=== PATIENT | female | born 1960 | race Caucasian/White ===

== ENCOUNTER 2018-05-24 14:09 | Emergency (ER) | payer MEDICAID, OTHER ==
[~2018-05-24] VITALS: Ht 154.9 cm; Wt 68.9 kg
--- NOTE | 2018-05-24 14:28 | ED General ---
General Chief Complaint: "neuropathy pain" Stated Complaint: GENERAL PAIN Source of Information: Patient Exam Limitations: No Limitations History of Present Illness Date Seen by Provider: May 24, 2018 Time Seen by Provider: 14:28 58 y/o F with history of chronic neuropathic pain, PCP discontinued valium and percocet about 4 months ago, comes in because her pain is worsening and she just can't take it. No new injuries. Is on gabapentin, also a diabetic. Reports compliance with those meds. Denies illicit drug use. Allergies and Home Medications Patient Home Medication List Home Medication List Reviewed: Yes Review of Systems Review of Systems Constitutional: No chills, No fever Respiratory: No cough, No short of breath Cardiovascular: No chest pain, No edema Gastrointestinal: No abdominal pain, No nausea, No vomiting Skin: No lesions, No rash Psychiatric/Neurological: Numbness, Tingling, Other (diffuse pain) Past Cupjfem-Ufkcul-Nkehtr Hx Past Med/Social Hx: Reviewed Nursing Past Med/Soc Hx Patient Social History Recent Foreign Travel: No Physical Exam Vital Signs Capillary Refill : Height, Weight, BMI Height: '" Weight: lbs. oz. kg; BMI Method: General Appearance: WD/WN, Anxious Eyes: Bilateral Eye Normal Inspection, Bilateral Eye PERRL, Bilateral Eye EOMI HEENT: PERRL/EOMI, TMs Normal, Pharynx Normal Neck: Full Range of Motion, Normal Inspection, Non Tender, Supple Respiratory: Chest Non Tender, Lungs Clear, Normal Breath Sounds, No Accessory Muscle Use, No Respiratory Distress Cardiovascular: Regular Rate, Rhythm, No Edema, No Gallop, No JVD, No Murmur, Normal Peripheral Pulses Back: Normal Inspection, No CVA Tenderness, No Vertebral Tenderness Extremity: Normal Capillary Refill, Normal Range of Motion, No Calf Tenderness Neurologic/Psychiatric: Alert, Oriented x3, No Motor/Sensory Deficits Skin: Normal Color, Warm/Dry Progress/Results/Core Measures Suspected Sepsis SIRS Temperature: Pulse: Respiratory Rate: Blood Pressure / Mean: Results/Orders Vital Signs/I&O Capillary Refill : Progress Note : Progress Note reports she has "overdosed on gabapentin" in the past when it was 300 mg q8. No new injury. Educated that this is the ED, not a place to come and get pain medications, she would need to follow up with PCP. I do not prescribe opiates or benzos for neuropathic pain, because they are less effective in treating that kind of pain. Offered Rx for Clonidine. Instructed to follow up with PCP. Departure Impression Primary Impression: Neuropathy Additional Impression: Chronic pain Disposition: 01 HOME, SELF-CARE Condition: Stable Departure-Patient Inst. Decision time for Depature: 14:39 Referrals: ARUNA PALM MD (PCP/Family) Primary Care Physician Patient Instructions: CHRONIC PAIN, Neuropathic Pain Add. Discharge Instructions: All discharge instructions reviewed with patient and/or family. Voiced understanding. Scripts Clonidine HCl (Clonidine HCl) 0.1 Mg Tablet 0.1 MG PO BID for 14 Days, #14 TAB 0 Refills Prov: ENOCH VIGIL MD 05/24/18 ENOCH VIGIL MD May 24, 2018 14:28
[2018-05-24] MEDS ORDERED: CLON0.1T PO (14:42)
[2018-05-24 15:05] VITALS: BP 167/82
== END 2018-05-24 15:05 | disposition home or self-care (01) ==
LOC: ER FS 14:15
DX: G62.9 Polyneuropathy, unspecified (principal); G89.29 Other chronic pain; E11.9 Type 2 diabetes mellitus without complications
CPT/HCPCS: 99281

== ENCOUNTER 2018-07-24 22:46 | Emergency (ER) | payer MEDICAID ==
[~2018-07-24] VITALS: Ht 154.9 cm; Wt 67.1 kg
[~2018-07-24 22:46] MED LIST: CLON0.1T PO
--- OUTSIDE RECORDS SUMMARY | 2018-07-24 22:53 | XMS REPORT ---
Author Author ARUNA PALM Organization [facility] Address [address] [place] [address] Care Team Providers Care Bioinformatics Analyst Name Role Phone ARUNA PALM Unavailable PROBLEMS Type Condition ICD9-CM Code [id number] Code Onset Dates Condition Status SNOMED Code Problem Hypertriglyceridemia 272.1 May, 0 432525215 Problem Benign hypertension 401.1 Oct, 0 56888997 Problem Onychomycosis 110.1 Feb, 0 393230782 Problem Uncontrolled diabetes mellitus 250.02 08 Apr, 2013 0 969984658 Problem Tobacco abuse disorder 305.1 Nov, 0 07321335 Problem Cervical neck pain with evidence of disc disease M50.90 May, 0 525051601 Problem Ingrowing right great toenail 703.0 July, 0 767777250 Problem Uncontrolled diabetes mellitus E11.65 Apr, 0 128995544 Problem Ingrowing right great toenail L60.0 July, 0 805153265 Problem Diverticulosis 562.10 Jan, 0 323075288 Problem Diabetic foot ulcer 250.80 Feb, 0 057829250 Problem Ingrowing left great toenail 703.0 July, 0 279125506 Problem Oral candidiasis 112.0 Sep, 0 39718509 Problem Carpal tunnel syndrome 354.0 Feb, 0 46359578 Problem Pain in joint, shoulder region 719.41 Feb, 0 413327636 Problem 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 Nov, 0 71637702 Problem Chronic posterior anal fissure 565.0 Nov, 0 19166017 Problem Insufficient supply of food T73.0XXA Feb, 0 Problem Insufficient supply of food 994.2 Feb, 0 391016840 Problem Insomnia 780.52 Dec, 0 579841597 Problem Anxiety 300.00 Jan, 0 47756206 Problem Depression 311 08 Sep, 2009 0 42255918 Problem Anemia 285.9 Jan, 0 297092838 Problem Mammographic microcalcification 793.81 Mar, 0 [id number] Problem Hemoglobin A1c 8.0 or greater 790.29 July, 0 202229076 Problem Hypoglycemia, exogenous hyperinsulinemia 251.0 July, 0 259244591 Problem Hemoglobin A1c 8.0 or greater R73.09 July, 0 300971817 Problem Diabetic foot ulcer E11.621 Feb, 0 145229141 Problem Hypoglycemia, exogenous hyperinsulinemia E15 July, 0 361167755 Problem Cyst of breast 610.0 Jun, 0 869658662 Problem Mammographic microcalcification R92.0 Mar, 0 10141340720152 Problem Closed fracture of coccyx S32.2XXA May, 0 358480784 Problem Closed fracture of coccyx 805.6 May, 0 580352557 Problem Elevated cholesterol with high triglycerides 272.2 Dec, 0 544390372 Problem Family history of seizure disorder V17.2 July, 0 695647195 Problem Cervical neck pain with evidence of disc disease 722.91 May, 0 000134026 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 Dec, 0 980672196 Problem Family history of seizure disorder Z82.0 July, 0 732684244 Problem Gastritis and duodenitis 535.50 Dec, 0 736662723 Problem Gastritis and duodenitis K29.90 Dec, 0 453607657 Problem Cyst of breast N60.09 Jun, 0 240221272 Problem Elevated cholesterol with high triglycerides E78.2 Dec, 0 949186099 Problem Hypertriglyceridemia E78.1 May, 0 729535281 Problem Oral candidiasis B37.0 Sep, 0 43742633 Problem Carpal tunnel syndrome G56.00 Feb, 0 44883979 Problem Pain in joint, shoulder region M25.519 Feb, 0 501697908 Problem Ingrowing left great toenail L60.0 July, 0 590820873 Problem Benign hypertension I10 Oct, 0 65036625 Problem Diverticulosis K57.90 Jan, 0 794545142 Problem Polyneuropathy associated with underlying disease G63 Active 502007378 Problem Diabetic polyneuropathy associated with type 2 diabetes mellitus E11.42 Active 94071304 Problem IDDM (insulin dependent diabetes mellitus) E11.9 Sep, 0 480655434 Problem Anxiety F41.9 Active 32755322 Problem IDDM (insulin dependent diabetes mellitus) 250.00 Sep, 0 508147102 Problem Onychomycosis B35.1 Feb, 0 466159582 Problem Inflammatory and toxic neuropathy 357.9 Dec, 0 954974826 Problem Tobacco abuse disorder Z72.0 Nov, 0 01522776 Problem Essential hypertension I10 Active 87058730 Problem Insomnia G47.00 Dec, 0 248222348 Problem USP current use of insulin Z79.4 Active 363455540 Problem Anemia D64.9 Jan, 0 844227407 Problem Type 2 diabetes mellitus with hyperglycemia E11.65 Active 04522643 Problem Sinusitis J32.9 Active 24552169 Problem Depression F32.9 Sep, 0 58275544 ALLERGIES No Information ENCOUNTERS Encounter Location Date Diagnosis [place] [address] [place] [phone] May, [place] [address] [place] [phone] May, Anxiety F41.9 ; Diabetic polyneuropathy associated with type 2 diabetes mellitus E11.42 and High risk medication use Z79.899 [facility] [address] [facility] [place] [address] Apr, Sinusitis J32.9 [place] [address] [place] [address] Apr, [place] [address] [place] [address] Mar, [place] [address] [place] [address] Mar, Type 2 diabetes mellitus with hyperglycemia E11.65 ; local [employer] current use of insulin Z79.4 ; Essential hypertension I10 ; Polyneuropathy associated with underlying disease G63 and Acute URI J06.9 [place] [address] [place] [address] Mar, [place] [address] [place] [phone] Mar, [facility] [address] [place] [address] Mar, [facility] [address] [place] [address] Feb, [facility] [address] [place] [address] Feb, [facility] [id number] [place] [phone] Feb, [facility] [address] [place] [address] Feb, [facility] [address] [place] [address] Feb, [facility] [address] [place] [address] [address] Feb, [facility] [address] [place] [address] Jan, [facility] [address] [place] [address] Jan, IMMUNIZATIONS No Known Immunizations SOCIAL HISTORY Never Assessed REASON FOR VISIT JLA REVIEW PLAN OF CARE VITAL SIGNS MEDICATIONS Unknown Medications RESULTS No Results PROCEDURES No Known procedures INSTRUCTIONS MEDICATIONS ADMINISTERED No Known Medications MEDICAL (GENERAL) HISTORY Type Description Date Medical History type II diabetes Medical History hypertension Medical History anxiety Surgical History tubal ligation Surgical History rectum sugery
--- OUTSIDE RECORDS SUMMARY | 2018-07-24 22:53 | XMS REPORT | Continuity of Care Document ---
Author Organization Unknown Address Unknown Allergies There is no data. Medications There is no data. Problems There is no data. Procedures There is no data. Results There is no data. Encounters ACCT No. Visit Date/Time Discharge Status Pt. Type Provider Facility Loc./Unit Complaint [id number] 06/28/2018 14:20:00 06/28/2018 23:59:59 CLS Outpatient ANUPAM MYERS APRN [facility]
[2018-07-25] MEDS ORDERED: hydrOXYzine (VISTARIL) 25 MG capsule/tablet PO ONE (00:30)
[2018-07-25] MEDS ORDERED: KETOROLAC 30 MG/ML VIAL IM ONE (00:30)
--- NOTE | 2018-07-25 00:35 | ED Psychosocial ---
General Chief Complaint: General Problems/Pain Stated Complaint: BODY ACHES Nursing Triage Note: Patient reports her PCP, Dr. Ann, has stopped prescribing her narcotic pain medication. Patient states she "aches all over" and found a hydrocodone at her mother's house today, so she took it. She now presents to the ED wanting something to help with the pain. History of Present Illness Date Seen by Provider: July 25, 2018 Time Seen by Provider: 00:20 Allergies and Home Medications Allergies Uncoded Allergies: CONTRAST DYE (Allergy, Unknown, 05/24/18) PENICILLIN (Allergy, Unknown, 05/24/18) Home Medications Clonidine HCl 0.1 Mg Tablet, 0.1 MG PO BID Prescribed by: ENOCH VIGIL on 05/24/18 1442 Past Vgdsuvf-Gyquee-Llxqyq Hx Patient Social History Alcohol Use: Denies Use Recreational Drug Use: No Smoking Status: Current Everyday Smoker Type Used: Cigarettes 2nd Hand Smoke Exposure: No Recent Foreign Travel: No Contact w/Someone Who Travel: No Recent Infectious Disease Expo: No Recent Hopitalizations: No Physical Abuse: No Sexual Abuse: No Mistreated: No Fear: No Seasonal Allergies Seasonal Allergies: No Past Medical History Surgeries: Yes Tubal Ligation Respiratory: Yes COPD Cardiac: Yes Hypertension Neurological: Yes Neuropathy Genitourinary: No Gastrointestinal: No Musculoskeletal: No Endocrine: Yes Diabetes, Insulin dep HEENT: No Cancer: No Psychosocial: Yes Anxiety Integumentary: No Blood Disorders: No Physical Exam Vital Signs - First Documented 07/24/18 23:13 Temp 97.2 Pulse 74 Resp 20 B/P (MAP) 141/69 (93) Pulse Ox 98 O2 Delivery Room Air Capillary Refill : Less Than 3 Seconds Height, Weight, BMI Height: 5'1.00" Weight: 148lbs. oz. 67.040563ae; BMI Method:Stated Progress/Results/Core Measures Results/Orders My Orders Orders - VIOLA LARA DO Ketorolac Injection (Toradol Injection) (07/25/18 00:30) Hydroxyzine Cap/Tab (Vistaril) (07/25/18 00:30) Vital Signs/I&O 07/24/18 23:13 Temp 97.2 Pulse 74 Resp 20 B/P (MAP) 141/69 (93) Pulse Ox 98 O2 Delivery Room Air Blood Pressure Mean: 93 Departure Impression Primary Impression: Anxiety and depression Additional Impression: Chronic pain Disposition: HOME, SELF-CARE Condition: Stable Departure-Patient Inst. Decision time for Depature: 00:31 Referrals: [facility] Patient Instructions: Chronic Pain (DC), Anxiety, Adult (DC) Add. Discharge Instructions: All discharge instructions reviewed with patient and/or family. Voiced understanding. RECOMMEND FOLLOWING UP WITH [facility]. THEY HAVE LOCATIONS HERE IN [facility], AND [place]. Scripts Diclofenac Potassium (Diclofenac Potassium) 50 Mg Tablet 50 MG PO Q8H PRN for AINP, #30 TAB 0 Refills Prov: VIOLA LARA DO 07/25/18 Hydroxyzine Pamoate (Hydroxyzine Pamoate) 50 Mg Capsule 50 MG PO Q6H PRN for ANXIETY, #30 CAP 0 Refills Prov: VIOLA LARA DO 07/25/18 VIOLA LARA DO July 25, 2018 00:35
[2018-07-25] MEDS ORDERED: DICL50TA4 PO (00:36)
[2018-07-25] MEDS ORDERED: HYDR50CA3 PO (00:36)
[2018-07-25 00:53] VITALS: BP 177/85
== END 2018-07-25 00:53 | disposition home or self-care (01) ==
LOC: EDUNIT# 22:46 → ER FS 22:50
DX: F41.9 Anxiety disorder, unspecified (principal); F32.9 Major depressive disorder, single episode, unspecified; G89.29 Other chronic pain; J44.9 Chronic obstructive pulmonary disease, unspecified; I10 Essential (primary) hypertension; G62.9 Polyneuropathy, unspecified; E11.9 Type 2 diabetes mellitus without complications; F17.210 Nicotine dependence, cigarettes, uncomplicated; Z98.51 Tubal ligation status; Z88.0 Allergy status to penicillin; Z91.041 Radiographic dye allergy status
CPT/HCPCS: 99284

== ENCOUNTER 2019-04-17 15:44 | Emergency (ER) | payer MEDICAID ==
[~2019-04-17] VITALS: Ht 155 cm; Wt 68.1 kg
[~2019-04-17 15:44] MED LIST changes: +DICL50TA4 PO; +HYDR50CA3 PO
[2019-04-17] MEDS ORDERED: IBUP-1780 PO (16:06)
--- NOTE | 2019-04-17 16:06 | ED General ---
General Chief Complaint: General Problems/Pain Stated Complaint: RIGHT SIDE RIB PAIN Nursing Triage Note: Was getting laundry out of the washing machine and hit her R side on the machine about two hours prior to arrival. Is having pain rated at 10/10. States she has chronic pain but it is much worse. Nursing Sepsis Screen: No Definite Risk Source of Information: Patient Exam Limitations: No Limitations History of Present Illness Date Seen by Provider: Apr 17, 2019 Time Seen by Provider: 16:00 Initial Comments Presents w pain under her R breast, after leaning over and putting laundry into the washer. Did not fall, but now having pain....no bruising. No difficulty b reathing. Allergies and Home Medications Allergies Coded Allergies: Penicillins (Verified Allergy, Unknown, 04/17/19) Uncoded Allergies: CONTRAST DYE (Allergy, Unknown, 05/24/18) PENICILLIN (Allergy, Unknown, 05/24/18) Home Medications Clonidine HCl 0.1 Mg Tablet, 0.1 MG PO BID Prescribed by: ENOCH VIGIL on 05/24/18 1442 Diclofenac Potassium 50 Mg Tablet, 50 MG PO Q8H PRN for AINP Prescribed by: VIOLA LARA on 07/25/18 0036 Hydroxyzine Pamoate 50 Mg Capsule, 50 MG PO Q6H PRN for ANXIETY Prescribed by: VIOLA LARA on 07/25/18 0036 Ibuprofen 800 Mg Tablet, 800 MG PO Q8H PRN for PAIN-MILD Prescribed by: CHET ELIZABETH on 04/17/19 1606 Patient Home Medication List Home Medication List Reviewed: Yes Review of Systems Review of Systems Constitutional: no symptoms reported, see HPI; No fever, No malaise, No weakness Respiratory: see HPI; No cough, No dyspnea on exertion, No short of breath, No stridor, No wheezing Cardiovascular: chest pain (under R breast); No palpitations Gastrointestinal: No abdominal pain, No nausea, No vomiting Musculoskeletal: No back pain, No joint pain Skin: No change in color, No rash Past Cvmhvhz-Aletqq-Hojexu Hx Past Med/Social Hx: Reviewed Nursing Past Med/Soc Hx Patient Social History Alcohol Use: Denies Use Recreational Drug Use: No Type Used: Cigarettes 2nd Hand Smoke Exposure: No Recent Foreign Travel: No Contact w/Someone Who Travel: No Recent Infectious Disease Expo: No Recent Hopitalizations: No Physical Abuse: No Sexual Abuse: No Mistreated: No Fear: No Seasonal Allergies Seasonal Allergies: No Past Medical History Surgeries: Yes Tubal Ligation Respiratory: Yes COPD Cardiac: Yes Hypertension Neurological: Yes Neuropathy Genitourinary: No Gastrointestinal: No Musculoskeletal: No Endocrine: Yes Diabetes, Insulin dep HEENT: No Cancer: No Psychosocial: Yes Anxiety Integumentary: No Blood Disorders: No Physical Exam Vital Signs Vital Signs - First Documented 04/17/19 16:00 Temp 36.4 Pulse 78 Resp 16 B/P (MAP) 173/99 (123) Pulse Ox 98 Capillary Refill : Less Than 3 Seconds Height, Weight, BMI Height: 5'1.00" Weight: 148lbs. oz. 67.570872bz; 28.00 BMI Method:Stated General Appearance: No Apparent Distress, WD/WN Respiratory: Lungs Clear, Normal Breath Sounds Cardiovascular: Regular Rate, Rhythm, No Edema, Normal Peripheral Pulses, Other (Palpation of right lateral chest wall (lateral to area of pain, did not palpate or examine breast) and had no pain w compression of ribs.) Gastrointestinal: Non Tender, Soft Back: Normal Inspection, No CVA Tenderness, No Vertebral Tenderness; No Dec reased Range of Motion, No Muscle Spasm, No Vertebral Tenderness Extremity: Normal Range of Motion (b/l UE's), Non Tender Progress/Results/Core Measures Suspected Sepsis Recent Fever Within 48 Hours: No Infection Criteria Present: None New/Unexplained Altered Menta: No Sepsis Screen: No Definite Risk SIRS Temperature: Pulse: 78 Respiratory Rate: 16 Blood Pressure 173 /99 Mean: 123 Results/Orders Vital Signs/I&O 04/17/19 16:00 Temp 36.4 Pulse 78 Resp 16 B/P (MAP) 173/99 (123) Pulse Ox 98 Capillary Refill : Less Than 3 Seconds Blood Pressure Mean: 123 Departure Impression Primary Impression: Contusion of right chest wall Qualified Codes: S20.211A - Contusion of right front wall of thorax, initial encounter Disposition: HOME, SELF-CARE Condition: Stable Departure-Patient Inst. Decision time for Depature: 16:05 Referrals: ARUNA PALM MD (PCP/Family) Primary Care Physician Patient Instructions: CHEST CONTUSION Scripts Ibuprofen (Ibuprofen) 800 Mg Tablet 800 MG PO Q8H PRN for PAIN-MILD, #30 TAB Prov: ROCHET PENNY DO 04/17/19 CHET ELIZABETH DO Apr 17, 2019 16:06
[2019-04-17 16:12] VITALS: BP 136/81
== END 2019-04-17 16:13 | disposition home or self-care (01) ==
LOC: EDUNIT# 15:44 → ER FS 15:46
DX: S20.211A Contusion of right front wall of thorax, initial encounter (principal); I10 Essential (primary) hypertension; F41.9 Anxiety disorder, unspecified; Z88.0 Allergy status to penicillin; Z91.041 Radiographic dye allergy status; W22.8XXA Striking against or struck by other objects, initial encounter
CPT/HCPCS: 99281

== ENCOUNTER → 2019-04-24 | Outpatient (CLI) | payer MEDICAID ==
[~2019-04-24] MED LIST changes: +IBUP-1780 PO
--- NOTE | 2019-04-24 15:05 | Diagnostic Imaging Report ---
INDICATION: Rib pain after fall. Four views were obtained. FINDINGS: Right lung is clear. There is no pleural effusion or pneumothorax. There are no displaced rib fractures. IMPRESSION: No displaced rib fractures. Dictated by: Dictated on workstation # [id number]
== END ==
LOC: RAD FS 13:50
PROVIDERS: ATTEND Nurse Practitioner Family
DX: R07.81 Pleurodynia (principal)
CPT/HCPCS: 71100

== ENCOUNTER 2019-08-07 11:48 | Emergency (ER) | payer MEDICAID ==
[~2019-08-07] VITALS: Ht 154 cm; Wt 66.5 kg
--- OUTSIDE RECORDS SUMMARY | 2019-08-07 11:54 | XMS REPORT | Continuity of Care Document ---
Author Organization Unknown Address Unknown Phone Unavailable Allergies Active Description Code Type Severity Reaction Onset Reported/Identified Relationship to Patient Clinical Status Yes CONTRAST DYE CONTRAST DYE Unknown N/A 05/24/2018 Yes PENICILLIN PENICILLIN Unknown N/A 05/24/2018 Yes Penicillins [id number] Drug Aller gy Unknown N/A 04/17/2019 Medications There is no data. Problems Date Dx Coded Attending Type Code Diagnosis Diagnosed By 05/24/2018 ENOCH VIGIL MD, Ot E11 .9 TYPE 2 DIABETES MELLITUS WITHOUT COMPLIC 05/24/2018 ENOCH VIGIL MD, Ot G62 .9 POLYNEUROPATHY, UNSPECIFIED 05/24/2018 ENOCH VIGIL MD, Ot G89.29 OTHER CHRONIC PAIN 05/26/2018 ENOCH VIGIL MD Ot E11 .9 TYPE 2 DIABETES MELLITUS WITHOUT COMPLIC 05/26/2018 ENOCH VIGIL MD, Ot G62 .9 POLYNEUROPATHY, UNSPECIFIED 05/26/2018 ENOCH VIGIL MD, Ot G89.29 OTHER CHRONIC PAIN 07/25/2018 VIOLA LARA DO, Ot E11.9 TYPE 2 DIABETES MELLITUS WITHOUT COMPLIC 07/25/2018 VIOLA LARA DO, Ot F17.210 NICOTINE DEPENDENCE, CIGARETTES, UNCOMPL 07/25/2018 VIOLA LARA DO, Ot F32.9 MAJOR DEPRESSIVE DISORDER, SINGLE EPISOD 07/25/2018 VIOLA LARA DO, Ot F41.9 ANXIETY DISORDER, UNSPECIFIED 07/25/2018 VIOLA LARA DO, Ot G62.9 POLYNEUROPATHY, UNSPECIFIED 07/25/2018 VIOLA LARA DO, Ot G89.29 OTHER CHRONIC PAIN 07/25/2018 VIOLA LARA DO, Ot I1 0 ESSENTIAL (PRIMARY) HYPERTENSION 07/25/2018 VIOLA LARA DO, Ot J44.9 CHRONIC OBSTRUCTIVE PULMONARY DISEASE, U 07/25/2018 VIOAL LARA DO, Ot R5 2 PAIN, UNSPECIFIED 07/25/2018 VIOLA LARA DO, Ot Z88.0 ALLERGY STATUS TO PENICILLIN 07/25/2018 VIOLA LARA DO, Ot Z91.041 RADIOGRAPHIC DYE ALLERGY STATUS 07/25/2018 JANE DO, VIOLA [place] Ot Z98.51 TUBAL LIGATION STATUS 04/17/2019 ROVENSTINE DO, CHET Yip Ot F41.9 ANXIETY DISORDER, UNSPECIFIED 04/17/2019 ROVENSTINE DO, CHET Yip Ot I10 ESSENTIAL (PRIMARY) HYPERTENSION 04/17/2019 ROVENSTINE DO, CHET Yip Ot R07.81 PLEURODYNIA 04/17/2019 ROVENSTINE DO, CHET Yip Ot S20.211A CONTUSION OF RIGHT FRONT WALL OF THORAX, 04/17/2019 ROVENSTINE DO, CHET Yip Ot W22.8XXA STRIKING AGAINST OR STRUCK BY OTHER OBJE 04/17/2019 ROVENSTINE DO, CHET Yip Ot Z88.0 ALLERGY STATUS TO PENICILLIN 04/17/2019 ROVENSTINE DO, CHET Yip Ot Z91.041 RADIOGRAPHIC DYE ALLERGY STATUS 04/20/2019 ROVENSTINE DO, CHET Yip Ot F41.9 ANXIETY DISORDER, UNSPECIFIED 04/20/2019 ROVENSTINE DO, CHET Phi Ot I10 ESSENTIAL (PRIMARY) HYPERTENSION 04/20/2019 ROVENSTINE DO, CHET Yip Ot R07.81 PLEURODYNIA 04/20/2019 ROVENSTINE DO, CHET Yip Ot S20.211A CONTUSION OF RIGHT FRONT WALL OF THORAX, 04/20/2019 ROVENSTINE DO, CHET Yip Ot W22.8XXA STRIKING AGAINST OR STRUCK BY OTHER OBJE 04/20/2019 ROVENSTINE DO, CHET Yip Ot Z88.0 ALLERGY STATUS TO PENICILLIN 04/20/2019 ROVENSTINE DO, CHET Yip Ot Z91.041 RADIOGRAPHIC DYE ALLERGY STATUS 04/25/2019 O'DAVION HARTMAN APRN Ot R07.81 PLEURODYNIA 04/25/2019 O'DAVION HARTMAN TRANSPLANTER Ot R07.81 PLEURODYNIA Procedures There is no data. Results Test Result Range PDM - 09 PANEL (PROFILE 1) - 05/18/18 09 :18 Creatinine 13.9 mg/dL > or = 20.0 pH 6.71 4.5 - 9.0 Oxidant NEGATIVE mcg/mL <200 Amphetamines NEGATIVE ng/mL <500 medMATCH Amphetamines CONSISTENT NRG Benzodiazepines POSITIVE ng/mL <100 Marijuana Metabolite NEGATIVE ng/mL <20 medMATCH Marijuana Metab CONSISTENT NRG Cocaine Metabolite NEGATIVE ng/mL <150 medMATCH Cocaine Metab CONSISTENT NRG Opiates NEGATIVE ng/mL <100 medMATCH Opiates CONSISTENT NRG Oxycodone NEGATIVE ng/mL <100 medMATCH Oxycodone CONSISTENT NRG COMMENT NRG Alphahydroxyalprazolam NEGATIVE ng/mL <25 medMATCH aOH alprazolam CONSISTENT NRG Alphahydroxymidazolam NEGATIVE ng/mL < 50 medMATCH aOH midazolam CONSISTENT NRG Alphahydroxytriazolam NEGATIVE ng/mL < 50 medMATCH aOH triazolam CONSISTENT NRG Aminoclonazepam NEGATIVE ng/mL <25 medMATCH Aminoclonazepam CONSISTENT NRG Hydroxyethylflurazepam NEGATIVE ng/mL <50 medMATCH OH,Et flurazepam CONSISTENT NR G Lorazepam NEGATIVE ng/mL <50 medMATCH Lorazepam CONSISTENT NRG Nordiazepam NEGATIVE ng/mL <50 medMATCH Nordiazepam CONSISTENT NRG Oxazepam 59 ng/mL <50 medMATCH Oxazepam INCONSISTENT NRG Temazepam NEGATIVE ng/mL <50 medMATCH Temazepam CONSISTENT NRG Specific [place] 1.004 > or = 1.003 Barbiturates NEGATIVE ng/mL <300 medMATCH Barbiturates CONSISTENT NRG Methadone Metabolite NEGATIVE ng/mL <100 medMATCH Methadone Metab CONSISTENT NRG Phencyclidine NEGATIVE ng/mL <25 medMATCH Phencyclidine CONSISTENT NRG CBC w/MANUAL DIFF - 12/09/18 14:29 WHITE BLOOD CELL COUNT 8.1 Thousand/uL 3 .8-10.8 RED BLOOD CELL COUNT 5.57 Million/uL 3.8 0-5.10 HEMOGLOBIN 16.5 g/dL 11.7-15.5 HEMATOCRIT 47.3 % 35.0-45.0 MCV 84.9 fL 80.0-100.0 MCH 29.6 pg 27.0-33.0 MCHC 34.9 g/dL 32.0-36.0 RDW 13.0 % 11.0-15.0 PLATELET COUNT 193 Thousand/uL 140-400 MPV 11.7 fL 7.5-12.5 COMMENT(S) NRG CULTURE, URINE - 12/09/18 14:29 CULTURE, URINE, ROUTINE NRG A1C - 12/09/18 14:29 HEMOGLOBIN A1c 7.5 % of total Hgb <5.7 DIFFERENTIAL, MANUAL - 12/09/18 14:29 ABSOLUTE NEUTROPHILS 4212 cells/uL 1500- 7800 ABSOLUTE MONOCYTES 162 cells/uL 200-950 ABSOLUTE EOSINOPHILS 154 cells/uL 15-500 ABSOLUTE BASOPHILS 0 cells/uL 0-200 NEUTROPHILS 52.0 % NRG LYMPHOCYTES 44.1 % NRG MONOCYTES 2.0 % NRG EOSINOPHILS 1.9 % NRG BASOPHILS 0 % NRG ABSOLUTE LYMPHOCYTES 3572 cells/uL 850-3 900 PLATELET ESTIMATION ADEQUATE ADEQUATE TSH w/ FREE T4 - 04/26/19 08:33 TSH 2.48 mIU/L 0.40-4.50 T4, FREE 1.3 ng/dL 0.8-1.8 LIPID PANEL - 04/26/19 08:33 CHOLESTEROL, TOTAL 193 mg/dL <200 HDL CHOLESTEROL 43 mg/dL > OR = 50 TRIGLYCERIDES 211 mg/dL <150 LDL-CHOLESTEROL 117 mg/dL (calc) NRG CHOL/HDLC RATIO 4.5 (calc) <5.0 NON HDL CHOLESTEROL 150 mg/dL (calc) <13 0 CMP - 04/26/19 08:33 GLUCOSE 166 mg/dL 65-99 UREA NITROGEN (BUN) 14 mg/dL 7-25 CREATININE 0.69 mg/dL 0.50-0.99 eGFR NON-AFR. MOZAMBICAN 95 mL/min/1.73m2 > OR = 60 eGFR 110 mL/min/1.73m2 > OR = 60 BUN/CREATININE RATIO NOT APPLICABLE (calc) 6-22 SODIUM 140 mmol/L 135-146 POTASSIUM 4.4 mmol/L 3.5-5.3 CHLORIDE 100 mmol/L 98-110 CARBON DIOXIDE 29 mmol/L 20-32 CALCIUM 9.7 mg/dL 8.6-10.4 PROTEIN, TOTAL 7.6 g/dL 6.1-8.1 ALBUMIN 4.6 g/dL 3.6-5.1 GLOBULIN 3.0 g/dL (calc) 1.9-3.7 ALBUMIN/GLOBULIN RATIO 1.5 (calc) 1.0-2. 5 BILIRUBIN, TOTAL 0.3 mg/dL 0.2-1.2 ALKALINE PHOSPHATASE 71 U/L 37-153 AST 15 U/L 10-35 ALT 20 U/L 6-29 A1C - 04/26/19 08:33 HEMOGLOBIN A1c 8.1 % of total Hgb <5.7 Encounters ACCT No. Visit Date/Time Discharge Status Pt. Type Provider Facility Loc./Unit Complaint [id number] 06/02/2019 09:00:00 06/02/2019 23:59:5 9 CLS Outpatient DAVION SEVERINO [facility] [id number] 04/26/2019 08:30:00 Document Registration [id number] 12/09/2018 13:40:00 Document Registration [id number] 05/17/2018 16:20:00 Document Registration [id number] 04/24/2019 13:50:00 23:59:59 CLS Outpatient Ruth'DAVION HARTMAN APRN [facility] RAD FS R07.81 [id number] 04/17/2019 15:46:00 16:13:00 DIS Emergency IAMVENSTCHET MONTERROSO DO [facility] ER FS RIGHT SIDE RIB PAIN [id number] 07/24/2018 22:50:00 019 00:53:00 DIS Emergency VIOLA LARA DO [facility] ER FS BODY ACHES [id number] 05/24/2018 14:15:00 019 15:05:00 DIS Emergency ENOCH VIGIL MD [facility] ER FS GENERAL PAIN
--- NOTE | 2019-08-07 12:13 | ED General ---
General Chief Complaint: General Problems/Pain Stated Complaint: GENERAL PAIN Nursing Triage Note: Is here complaining of generalized pain throughout body rated at 10/10. States her doctor took away her pain pills and nerve pills a year ago. Nursing Sepsis Screen: No Definite Risk Source of Information: Patient Exam Limitations: No Limitations History of Present Illness Date Seen by Provider: August 07, 2019 Time Seen by Provider: 12:03 Initial Comments 59-year-old female presents the emergency room reporting pain "all over". Patient states she's had pain for the past year. She states that she has not had the ability to get anyone to give her medications. She states that her opioids and her benzodiazepines were stopped a year ago. Checking the pharmacy monitoring program the patient has had gabapentin from an konstantin Yip APRN on August 01 gabapentin from Elisa Ann M.D. on May 14 tramadol from Bill Mtz on March 2019 and tramadol Aruna Ann MD on February 07, 2019. Patient states the pain is all over her body. She has given informed consent for diagnostic and therapeutic services. Medical history reveals patient has COPD hypertension type 2 diabetes is insulin-dependent and neuropathic pain. Past surgical history positive for tubal ligation. Patient admits using cannabinoids. She states that she has pain in her coccyx and lumbar area but "all over also". Patient initially admitted to only been seen by Dr. Aruna Ann however she did subsequently admit that she sees Ms. Gaspar and Bill Hart. Patient also has been on ibuprofen. Timing/Duration: 1 Week (patient initially stated her pain is been going on for over a year and has been adequately treated the patient was advised that she has been taking gabapentin and tramadol in the past she said the past week she's had more pain in her lumbar and coccyx area. She states that she has not had any imaging for over a year), Getting Worse Severity: Moderate Modifying Factors: improves with Movement, improves with Other (generalized pain back neck and shoulders COCCYX lumbar areas) Associated Systoms: Other (complains of generalized pain but has been seen on a regular basis but other outside providers and has been given tramadol and gabapentin in the past) Allergies and Home Medications Allergies Coded Allergies: Penicillins (Verified Allergy, Unknown, 04/17/19) Uncoded Allergies: CONTRAST DYE (Allergy, Unknown, 05/24/18) PENICILLIN (Allergy, Unknown, 05/24/18) Home Medications Clonidine HCl 0.1 Mg Tablet, 0.1 MG PO BID Prescribed by: ENOCH VIGIL on 05/24/18 1442 Diclofenac Potassium 50 Mg Tablet, 50 MG PO Q8H PRN for AINP Prescribed by: VIOLA LARA on 07/25/18 0036 Hydroxyzine Pamoate 50 Mg Capsule, 50 MG PO Q6H PRN for ANXIETY Prescribed by: VIOLA LARA on 07/25/18 0036 Ibuprofen 800 Mg Tablet, 800 MG PO Q8H PRN for PAIN-MILD Prescribed by: CHET ELIZABETH on 04/17/19 1606 Tramadol HCl 50 Mg Tablet, 50 MG PO Q8H PRN for PAIN Prescribed by: SHOSHANA MURCIA on 08/07/19 1425 Patient Home Medication List Home Medication List Reviewed: Yes Review of Systems Review of Systems Constitutional: see HPI, weakness, other ("pain all over".) EENTM: no symptoms reported Respiratory: no symptoms reported (but has a history of COPD), see HPI Cardiovascular: no symptoms reported, see HPI (diffuse pain "all over".) Gastrointestinal: no symptoms reported Genitourinary: no symptoms reported Musculoskeletal: see HPI, back pain, joint pain, muscle pain, muscle stiffness, muscle weakness, neck pain, other (patient has been recently treated with ibuprofen gabapentin and tramadol she also admits using cannabinoids for pain. She initially denied this until the pharmacy monitoring program was completed) Skin: no symptoms reported Psychiatric/Neurological: See HPI, Anxiety Hematologic/Lymphatic: No Symptoms Reported Immunological/Allergic: no symptoms reported Past Imyqgkf-Fbjlnz-Anhzim Hx Past Med/Social Hx: Reviewed Nursing Past Med/Soc Hx Patient Social History Alcohol Use: Rarely Uses Recreational Drug Use: No Smoking Status: Current Everyday Smoker Type Used: Cigarettes 2nd Hand Smoke Exposure: Yes Recent Foreign Travel: No Contact w/Someone Who Travel: No Recent Infectious Disease Expo: No Recent Hopitalizations: No Seasonal Allergies Seasonal Allergies: No Past Medical History Surgeries: Yes (hemorrhoidectomy) Tubal Ligation Respiratory: Yes COPD Cardiac: Yes High Cholesterol, Hypertension Neurological: Yes Neuropathy : No [employer] History: Tubal Ligation Genitourinary: No Gastrointestinal: No Musculoskeletal: No Endocrine: Yes Diabetes, Insulin dep HEENT: No Cancer: No Psychosocial: Yes Anxiety Integumentary: No Blood Disorders: No Family Medical History Reviewed Nursing Family Hx Physical Exam Vital Signs Vital Signs - First Documented 08/07/19 08/07/19 11:53 14:21 Temp 36.3 Pulse 66 Resp 16 B/P (MAP) 153/66 (95) Pulse Ox 98 O2 Delivery Room Air Capillary Refill : Less Than 3 Seconds Height, Weight, BMI Height: 5'1.00" Weight: 148lbs. oz. [id number]; 28.00 BMI Method:Stated General Appearance: Moderate Distress (secondary to pain "all over". Patient was able to define her pain in her back shoulders hips low back and coccyx areas and was highly anxious during the evaluation) Eyes: Bilateral Eye Normal Inspection, Bilateral Eye PERRL, Bilateral Eye EOMI HEENT: PERRL/EOMI, Normal ENT Inspection (patient is edentulous), Pharynx Normal (dry mucous membranes patient is a smoker) Neck: Normal Inspection, Supple, Limited Range of Motion (from deconditioning and chronic arthritis), Other (patient with chronic neck pain and no new complaints in this area however appears that she has been under care with [facility] and tramadol and ibuprofen) Respiratory: Chest Non Tender, No Accessory Muscle Use, No Respiratory Distress (patient is a smoker and also smokes marijuana), Rales (patient has inspiratory rales in the posterior bases that clear with deep inhalation), Other (surgery changes are consistent with tobacco and marijuana use) Cardiovascular: Regular Rate, Rhythm, No Edema, No Gallop, No JVD, No Murmur, Normal Peripheral Pulses Gastrointestinal: Normal Bowel Sounds, No Organomegaly, No Pulsatile Mass, Non Tender Back: Decreased Range of Motion (chronic in nature patient also has coccyx pain states is never been evaluated), Vertebral Tenderness (chronic in nature) Extremity: Normal Capillary Refill, Normal Inspection, Normal Range of Motion, Non Tender, No Calf Tenderness Neurologic/Psychiatric: Alert, Oriented x3, No Motor/Sensory Deficits, 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, Other (she has high levels of anxiety and appears to be seeking medications to decrease her pain sensation) Reflexes: 2+ Bicep (R), 2+ Bicep (L), 2+ Tricep (R), 2+ Tricep (L), 2+ Knee (R), 2+ Knee (L) Skin: Normal Color, Warm/Dry, Cool Lymphatic: No Adenopathy Progress/Results/Core Measures Suspected Sepsis Recent Fever Within 48 Hours: No Infection Criteria Present: None New/Unexplained Altered Menta: No Sepsis Screen: No Definite Risk SIRS Temperature: Pulse: 66 Respiratory Rate: 16 Laboratory Tests 08/07/19 12:20: White Blood Count 6.7 Blood Pressure 153 /66 Mean: 95 Laboratory Tests 08/07/19 12:20: Creatinine 0.67, Platelet Count 162, Total Bilirubin 0.3 Results/Orders Lab Results Laboratory Tests Test 08/07/19 12:20 08/07/19 12:23 Range/Units White Blood Count 6.7 4.3-11.0 10^3/uL Red Blood Count 5.30 4.35-5.85 10^6/uL Hemoglobin 15.5 11.5-16.0 G/DL Hematocrit 46 35-52 % Mean Corpuscular Volume 86 80-99 FL Mean Corpuscular Hemoglobin 29 25-34 PG Mean Corpuscular Hemoglobin Concent 34 32-36 G/DL Red Cell Distribution Width 13.8 10.0-14.5 % Platelet Count 162 130-400 10^3/uL Mean Platelet Volume 12.5 H 7.4-10.4 FL Neutrophils (%) (Auto) 52 42-75 % Lymphocytes (%) (Auto) 37 12-44 % Monocytes (%) (Auto) 7 0-12 % Eosinophils (%) (Auto) 4 0-10 % Basophils (%) (Auto) 0 0-10 % Neutrophils # (Auto) 3.5 1.8-7.8 X 10^3 Lymphocytes # (Auto) 2.5 1.0-4.0 X 10^3 Monocytes # (Auto) 0.5 0.0-1.0 X 10^3 Eosinophils # (Auto) 0.3 0.0-0.3 10^3/uL Basophils # (Auto) 0.0 0.0-0.1 10^3/uL Neutrophils % (Manual) 45 % Lymphocytes % (Manual) 43 % Monocytes % (Manual) 5 % Eosinophils % (Manual) 4 % Basophils % (Manual) 2 % Metamyelocytes % 0 % Myelocytes % 0 % Promyelocytes % 1 % Band Neutrophils 0 % Sodium Level 137 135-145 MMOL/L Potassium Level 4.3 3.6-5.0 MMOL/L Chloride Level 100 98-107 MMOL/L Carbon Dioxide Level 25 21-32 MMOL/L Anion Gap 12 5-14 MMOL/L Blood Urea Nitrogen 9 7-18 MG/DL Creatinine 0.67 0.60-1.30 MG/DL Estimat Glomerular Filtration Rate > 60 BUN/Creatinine Ratio 13 Glucose Level 328 H 70-105 MG/DL Calcium Level 9.0 8.5-10.1 MG/DL Corrected Calcium 9.1 8.5-10.1 MG/DL Total Bilirubin 0.3 0.1-1.0 MG/DL Aspartate Amino Transf (AST/SGOT) 16 5-34 U/L Alanine Aminotransferase (ALT/SGPT) 20 0-55 U/L Alkaline Phosphatase 76 40-136 U/L Total Protein 7.0 6.4-8.2 GM/DL Albumin 3.9 3.2-4.5 GM/DL Urine Color YELLOW Urine Clarity CLEAR Urine pH 6.5 5-9 Urine Specific [place] <=1.005 1.016-1.022 Urine Protein NEGATIVE NEGATIVE Urine Glucose (UA) TRACE H NEGATIVE Urine Ketones NEGATIVE NEGATIVE Urine Nitrite NEGATIVE NEGATIVE Urine Bilirubin NEGATIVE NEGATIVE Urine Urobilinogen 0.2 < = 1.0 MG/DL Urine Leukocyte Esterase NEGATIVE NEGATIVE Urine RBC (Auto) NEGATIVE NEGATIVE Urine RBC NONE /HPF Urine WBC RARE /HPF Urine Squamous Epithelial Cells RARE /HPF Urine Crystals NONE /LPF Urine Bacteria NEGATIVE /HPF Urine Casts NONE /LPF Urine Mucus NEGATIVE /LPF Urine Culture Indicated NO Urine Opiates Screen NEGATIVE NEGATIVE Urine Oxycodone Screen NEGATIVE NEGATIVE Urine Methadone Screen NEGATIVE NEGATIVE Urine Propoxyphene Screen NEGATIVE NEGATIVE Urine Barbiturates Screen NEGATIVE NEGATIVE Ur Tricyclic Antidepressants Screen NEGATIVE NEGATIVE Urine Phencyclidine Screen NEGATIVE NEGATIVE Urine Amphetamines Screen NEGATIVE NEGATIVE Urine Methamphetamines Screen NEGATIVE NEGATIVE Urine Benzodiazepines Screen NEGATIVE NEGATIVE Urine Cocaine Screen NEGATIVE NEGATIVE Urine Cannabinoids Screen NEGATIVE NEGATIVE My Orders Orders - SHOSHANA MURCIA H DO Cbc And Manual Diff (08/07/19 12:06) Comprehensive Metabolic Panel (08/07/19 12:06) Urinalysis (08/07/19 12:06) Drug Screen Stat (Urine) (08/07/19 12:06) Lumbar Spine 4 View Or More (08/07/19 12:36) Sacrum & Coccyx (08/07/19 12:36) Vital Signs/I&O 5/25/20 5/25/20 11:53 14:21 Temp 36.3 36.3 Pulse 66 68 Resp 16 18 B/P (MAP) 153/66 (95) 124/66 Pulse Ox 98 98 O2 Delivery Room Air Capillary Refill : Less Than 3 Seconds Blood Pressure Mean: 95 Progress Note : Time: 14:16 Progress Note Laboratory evaluation has returned. Patient has essentially normal labs but her urinalysis appears to be less than 1.005 and may be water. Patient reports she is Continuing to take her gabapentin. Patient admits to smoking marijuana but toxicology screen is negative for all substances. I've advised the patient to follow-up with her primary care provider. She has agreed to take ibuprofen and gabapentin but states that she is out of her tramadol. 5 day supply of tramadol will be given to the patient 50 mg 3 times a day when necessary. I recommended following up the patient with monitoring and a pain contract. Departure Impression Primary Impression: Chronic pain Additional Impressions: Arthritis Lumbago Disposition: 01 HOME, SELF-CARE Condition: Improved Departure-Patient Inst. Decision time for Depature: 14:21 Referrals: ARUNA ANN MD (PCP) Primary Care Physician Patient Instructions: CHRONIC PAIN, Low Back Pain in Adults, Arthritis and Exercise, Opioids for Short-Term Treatment of Pain Add. Discharge Instructions: Patient laboratory evaluation was suspect for water in her urinalysis. She presented with dry mucous membranes and was somewhat dehydrated but had a specific gravity less than 1.005. Patient also admitted to using marijuana but the drug screens were all negative. Patient does have low back pain imaging reveals the following: Indication: Back pain. 5 views were obtained. There are no prior studies available for comparison. The lateral view does show slight anterior translation of L4 with respect to L5. The alignment of the vertebral bodies is within normal limits. The intervertebral spaces are fairly well maintained. The oblique views fail to show any sign of a pars defect. There is no fracture or acute bony abnormality evident. There is no evidence for a paraspinal mass. There is moderate symmetrical sclerosis of the sacroiliac joints. Impression: 1. There is no evidence for an acute bony abnormality. 2. If there is clinical concern regarding spinal stenosis or nerve root encroachment, then MRI would be recommended for further study. Coccyx and sacrum study were normal Patient will follow-up with Aruna Ann M.D. for continued care 5 day supply of tramadol every 8 hours when necessary medication has been given. Patient is aware of the risks benefits and alternatives to opioid therapy. Pharmacy monitoring program was checked patient has received gabapentin and/or tramadol from 3 different providers in the past 5 months. All discharge instructions reviewed with patient and/or family. Voiced understanding. Scripts Tramadol HCl (Tramadol HCl) 50 Mg Tablet 50 MG PO Q8H PRN for PAIN for 5 Days, #15 TAB 0 Refills Prov: SHOSHANA MURCIA DO 08/07/19 Copy Copies To 1: [facility]/SHOSHANA SINGLETON DO August 07, 2019 12:13
[2019-08-07 12:58] LABS: HEMATOCRIT 46 % (35-52); HEMOGLOBIN 15.5 G/DL (11.5-16.0); LYMPHOCYTES % (AUTO) 37 % (12-44); MEAN CORPUSCULAR HEMOGLOBIN 29 PG (25-34); MEAN CORPUSCULAR HGB CONC 34 G/DL (32-36); MEAN CORPUSCULAR VOLUME 86 FL (80-99); MEAN PLATELET VOLUME 12.5 FL (7.4-10.4); MONOCYTES % (AUTO) 7 % (0-12); NEUTROPHILS % (AUTO) 52 % (42-75); PLATELET COUNT 162 10^3/uL (130-400); RED CELL DISTRIBUTION WIDTH 13.8 % (10.0-14.5); WHITE BLOOD COUNT 6.7 10^3/uL (4.3-11.0)
[2019-08-07 12:59] LABS: BASOPHILS % (AUTO) 0 % (0-10); EOSINOPHILS # (AUTO) 0.3 10^3/uL (0.0-0.3); EOSINOPHILS % (AUTO) 4 % (0-10); LYMPHOCYTES # (AUTO) 2.5 X 10^3 (1.0-4.0); MONOCYTES # (AUTO) 0.5 X 10^3 (0.0-1.0); NEUTROPHILS # (AUTO) 3.5 X 10^3 (1.8-7.8)
--- NOTE | 2019-08-07 13:12 | Diagnostic Imaging Report ---
Sacrum and coccyx at 12:49. Indication: Pain AP and lateral views were obtained. There are no prior studies for comparison. There is no fracture, dislocation or acute bony abnormality evident. There is moderate sclerosis of both sacroiliac joints. The soft tissues are unremarkable. Impression: There is no evidence for an acute bony abnormality.. Dictated by: Dictated on workstation # [id number]
--- NOTE | 2019-08-07 13:12 | Diagnostic Imaging Report ---
Lumbar spine at 12:46. Indication: Back pain. 5 views were obtained. There are no prior studies available for comparison. The lateral view does show slight anterior translation of L4 with respect to L5. The alignment of the vertebral bodies is within normal limits. The intervertebral spaces are fairly well maintained. The oblique views fail to show any sign of a pars defect. There is no fracture or acute bony abnormality evident. There is no evidence for a paraspinal mass. There is moderate symmetrical sclerosis of the sacroiliac joints. Impression: 1. There is no evidence for an acute bony abnormality. 2. If there is clinical concern regarding spinal stenosis or nerve root encroachment, then MRI would be recommended for further study. Dictated by: Dictated on workstation # [id number]
[2019-08-07 13:15] LABS: CHLORIDE 100 MMOL/L (98-107); POTASSIUM 4.3 MMOL/L (3.6-5.0); SODIUM 137 MMOL/L (135-145)
[2019-08-07 13:16] LABS: ALANINE AMINOTRANSFERASE 20 U/L (0-55); ALBUMIN 3.9 GM/DL (3.2-4.5); ALKALINE PHOSPHATASE 76 U/L (40-136); BILIRUBIN,TOTAL 0.3 MG/DL (0.1-1.0); BUN/CREATININE RATIO 13; CARBON DIOXIDE 25 MMOL/L (21-32); CREATININE SERUM 0.67 MG/DL (0.60-1.30); GFR ESTIMATED > 60; GLUCOSE 328 MG/DL (70-105)
[2019-08-07 13:30] LABS: CLARITY,URINE CLEAR; COLOR,URINE YELLOW; PH,URINE 6.5 (5-9)
[2019-08-07 13:31] LABS: BACTERIA,URINE NEGATIVE /HPF; BILIRUBIN,URINE NEGATIVE (NEGATIVE); GLUCOSE, URINE (UA) TRACE (NEGATIVE); KETONES,URINE NEGATIVE (NEGATIVE); LEUKOCYTE ESTERASE ,URINE NEGATIVE (NEGATIVE); NITRITE,URINE NEGATIVE (NEGATIVE); PROTEIN,URINE NEGATIVE (NEGATIVE); SQUAMOUS EPITHELIAL CELL,UR RARE /HPF; WBC,URINE RARE /HPF
[2019-08-07 13:35] LABS: AMPHETAMINE SCREEN, URINE NEGATIVE (NEGATIVE); BARBITURATE SCREEN URINE NEGATIVE (NEGATIVE); BENZODIAZEPINES SCREEN URINE NEGATIVE (NEGATIVE); CANNABINOID SCREEN, URINE NEGATIVE (NEGATIVE); COCAINE SCREEN URINE NEGATIVE (NEGATIVE); METHADONE STAT NEGATIVE (NEGATIVE); METHAMPHETAMINE SCREEN URINE S NEGATIVE (NEGATIVE); OPIATE SCREEN URINE NEGATIVE (NEGATIVE); OXYCODONE STAT NEGATIVE (NEGATIVE); PROPOXYPHENE STAT NEGATIVE (NEGATIVE); TRICYCLIC ANTIDEPRESSANTS SCRE NEGATIVE (NEGATIVE)
[2019-08-07 14:14] LABS: BAND NEUTROPHILS 0 %; BASOPHILS % (MANUAL) 2 %; EOSINOPHILS % (MANUAL) 4 %; LYMPHOCYTES % (MANUAL) 43 %; METAMYELOCYTES % 0 %; MONOCYTES % (MANUAL) 5 %; MYELOCYTES % 0 %; NEUTROPHILS % (MANUAL) 45 %; PROMYELOCYTES % 1 %
[2019-08-07 14:21] VITALS: BP 124/66
[2019-08-07] MEDS ORDERED: TRM50T PO (14:25)
== END 2019-08-07 14:45 | disposition home or self-care (01) ==
LOC: ER FS 11:48
DX: M19.90 Unspecified osteoarthritis, unspecified site (principal); G89.29 Other chronic pain; M54.5 Low back pain; I10 Essential (primary) hypertension; E11.40 Type 2 diabetes mellitus with diabetic neuropathy, unspecified; F41.9 Anxiety disorder, unspecified; F17.210 Nicotine dependence, cigarettes, uncomplicated; Z88.0 Allergy status to penicillin; Z91.041 Radiographic dye allergy status
CPT/HCPCS: 36415; 72110; 72220; 80053; 80306; 81000; 85007; 85027